=== PATIENT | male | born 1955 | race Caucasian/White ===

== ENCOUNTER 2021-02-27 08:31 | Day surgery (SDC) | payer MEDICARE, OTHER ==
[~2021-02-27 08:31] MED LIST: Lactated Ringers 1,000 ML IV SCH
[2021-02-27] MEDS ORDERED: Propofol 200 MG/20 ML SDV ONE (09:50)
[2021-02-27] MEDS ORDERED: fentaNYL 100 MCG/2 ML SDV ONE (09:50)
[2021-02-27] MEDS ORDERED: Midazolam 1 MG/ML 2 ML SDV ONE (09:50)
--- NOTE | 2021-02-27 12:17 | OR ---
PREOPERATIVE DIAGNOSIS: History of colon polyps. POSTOPERATIVE DIAGNOSIS: History of colon polyps. PROCEDURE PERFORMED: Colonoscopy with removal of mass at 50 cm. COMPLICATIONS: None. SPECIMENS: Mass at 50 cm. ESTIMATED BLOOD LOSS: 5 mL. DESCRIPTION OF PROCEDURE: This was done in the endoscopy suite. Sedation was given per Anesthesia. He was placed in left lateral position. First, a rectal exam was done and was normal. Scope was introduced into the rectum and slowly advanced to the rectum, sigmoid, descending, transverse, and ascending colon until the cecum was reached. Upon reaching the cecum, scope was slowly withdrawn looking at all mucosal surfaces on the way out. No mucosal abnormalities, lesions, or polyps were noted until 50 cm where a 5 mm pedunculated mass was seen, possibly intramuscular lipoma. This was removed with hot loop forceps and sent to pathology. The remainder of exam was normal. FINAL DIAGNOSIS: Mass at 50 cm. BKD: 02/27/2021 11:01:34 MODL: 02/27/2021 11:30:37 /[id number]
== END 2021-02-27 11:20 | disposition home or self-care (01) ==
LOC: VM.SDS 08:31
PROVIDERS: ATTEND Surgery
DX: Z12.11 Encounter for screening for malignant neoplasm of colon (principal); D17.5 Benign lipomatous neoplasm of intra-abdominal organs; I10 Essential (primary) hypertension; K21.9 Gastro-esophageal reflux disease without esophagitis; E78.00 Pure hypercholesterolemia, unspecified; F17.211 Nicotine dependence, cigarettes, in remission; J43.2 Centrilobular emphysema; Z79.899 Other long term (current) drug therapy; Z98.890 Other specified postprocedural states; Z87.891 Personal history of nicotine dependence
CPT/HCPCS: 00811; 45385; J2250; J2704; J3010; J7120

== ENCOUNTER 2024-06-16 12:55 | Emergency (ER) | payer MEDICARE, OTHER ==
[2024-06-16] MEDS ORDERED: Lidocaine 1% with EPINEPHrine 1:100,000 20 ML MDV INFILT PRN (13:08)
== END 2024-06-16 13:52 | disposition home or self-care (01) ==
LOC: VM.ED 12:55
DX: S61.411A Laceration without foreign body of right hand, initial encounter (principal); I10 Essential (primary) hypertension; X50.9XXA Other and unspecified overexertion or strenuous movements or postures, initial encounter
CPT/HCPCS: 12002; 99282; 99283